=== PATIENT | female | born 1985 | race Two or more races ===

== ENCOUNTER 2020-09-08 22:34 | Outpatient (CLI) | payer BC ==
[~2020-09-08] VITALS: Ht 177.8 cm; Wt 109.3 kg
[2020-09-08 23:14] VITALS: BP 112/69
[2020-09-08 23:24] LABS: MICROSCOPIC INDICATED
== END 2020-09-09 | disposition home or self-care (01) ==
LOC: LDOP 22:34
PROVIDERS: ATTEND Obstetrics & Gynecology
DX: O09.93 Supervision of high risk pregnancy, unspecified, third trimester (principal); O26.893 Other specified pregnancy related conditions, third trimester; Z3A.38 38 weeks gestation of pregnancy
CPT/HCPCS: 59025; 81001; 87086

== ENCOUNTER 2020-09-16 14:17 | Inpatient (IN) | payer BC ==
[~2020-09-16] VITALS: Ht 170.2 cm; Wt 109.0 kg
[2020-09-16] MEDS ORDERED: NEWBORN KIT ONE (14:21)
[2020-09-16] MEDS ORDERED: SODIUM CITRATE/CITRIC ACID 15 ML UDC ONE (14:22)
[2020-09-16] MEDS ORDERED: OXYTOCIN 30U/ 0.9% NaCL 500ML 500 ML ONE (14:22)
[2020-09-16] MEDS ORDERED: METOCLOPRAMIDE 5 MG/ML, 2ML ONE (14:22)
[2020-09-16] MEDS ORDERED: SODIUM CITRATE/CITRIC ACID 30 ML UDC PO ONE (14:30)
[2020-09-16] MEDS ORDERED: METOCLOPRAMIDE 5 MG/ML, 2ML IV ONE (14:30)
[2020-09-16] MEDS ORDERED: LACTATED RINGERS 1,000 ML IVBOLUS ONE (14:30)
[2020-09-16 14:38] LABS: BASOPHILS % (AUTO) 1 % (0-1); EOSINOPHILS % (AUTO) 1 % (1-7); LYMPHOCYTES % (AUTO) 18 % (22-44); MEAN CORPUSCULAR HEMOGLOBIN 30.3 pg (27.0-34.8); MEAN CORPUSCULAR HGB CONC 33.9 g/dL (32.4-35.8); MEAN PLATELET VOLUME 8.5 fL (7.4-10.4); MONOCYTES % (AUTO) 7 % (2-9); NEUTROPHILS % (AUTO) 74 % (42-75); PLATELET COUNT 212 x10^3/uL (130-400); RED CELL DISTRIBUTION WIDTH 13.4 % (9.6-15.2)
[2020-09-16 14:40] LABS: MD NO
[2020-09-16 14:57] VITALS: BP 118/71
[2020-09-16] MEDS ORDERED: FLU VACC QS2020-21(6MOS UP)/PF 60MCG/0.5 ML SYR IM-VACC ONE (15:30)
[2020-09-16] MEDS ORDERED: OXYTOCIN 10 UNITS/ML, 1ML ONE (15:41)
[2020-09-16] MEDS ORDERED: morphine SULFATE/PF 1 MG/ML, 10ML ONE (15:41)
[2020-09-16] MEDS ORDERED: EPHEDRINE 50 MG/ML, 1ML ONE (15:41)
[2020-09-16] MEDS ORDERED: EPINEPHRINE 1 MG/ML, 1ML ONE ×2 (15:41)
[2020-09-16] MEDS ORDERED: CEFAZOLIN 1,000 MG ONE (15:41)
[2020-09-16] MEDS ORDERED: WATER-INJECTION,STERILE 10 ML IV ONE (15:41)
[2020-09-16] MEDS ORDERED: PHENYLEPHRINE 10 MG/ML ONE (15:41)
[2020-09-16] MEDS ORDERED: ONDANSETRON 2MG/ML, 2ML ONE (15:41)
[2020-09-16] MEDS: LACTATED RINGERS 1,000 ML IV SCH ×2 (16:16→18:25)
[2020-09-16] MEDS ORDERED: IBUPROFEN 200 MG TABLET PO PRN (17:00)
[2020-09-16] MEDS ORDERED: RHOGAM FROM BLOOD BANK 1 NOTE EA IM/IV ONE (17:00)
[2020-09-16] MEDS ORDERED: ONDANSETRON 2MG/ML, 2ML IV PRN (17:00)
[2020-09-16] MEDS ORDERED: HYDROcodone/APAP 5/325 TABLET PO PRN (17:00)
[2020-09-16] MEDS ORDERED: ACETAMINOPHEN 325 MG TABLET PO PRN (17:00)
[2020-09-16] MEDS ORDERED: IBUPROFEN 800 MG TABLET PO PRN (17:00)
[2020-09-16] MEDS ORDERED: MISOPROSTOL 200 MCG TABLET PR PRN (17:00)
[2020-09-16] MEDS ORDERED: BISACODYL 10 MG SUPP PR PRN (17:00)
[2020-09-16] MEDS ORDERED: GLYCOPYRROLATE 0.2MG/1ML, 5ML ONE (17:35)
[2020-09-16] MEDS: OXYTOCIN 30U/ 0.9% NaCL 500ML 500 ML IV SCH (18:25)
[2020-09-16] MEDS ORDERED: KETOROLAC 30 MG/1 ML ONE (19:09)
[2020-09-16] MEDS: KETOROLAC 30 MG/1 ML IVPush SCH (19:12)
[2020-09-16] MEDS ORDERED: OXYcodone/APAP 5/325MG TABLET ONE (19:41)
[2020-09-16] MEDS: OXYcodone/APAP 5/325MG TABLET PO PRN (19:44)
[2020-09-16 21:30] VITALS: BP 113/68
[2020-09-17] MEDS: KETOROLAC 30 MG/1 ML IVPush SCH ×4 (01:16→19:30)
[2020-09-17 01:29] VITALS: BP 106/66
[2020-09-17] MEDS: OXYTOCIN 30U/ 0.9% NaCL 500ML 500 ML IV SCH ×3 (03:00→23:00)
[2020-09-17 05:15] VITALS: BP 103/61
[2020-09-17 05:19] LABS: BASOPHILS % (AUTO) 0 % (0-1); EOSINOPHILS % (AUTO) 1 % (1-7); LYMPHOCYTES % (AUTO) 13 % (22-44); MEAN CORPUSCULAR HEMOGLOBIN 30.7 pg (27.0-34.8); MEAN CORPUSCULAR HGB CONC 34.7 g/dL (32.4-35.8); MEAN PLATELET VOLUME 8.1 fL (7.4-10.4); MONOCYTES % (AUTO) 7 % (2-9); NEUTROPHILS % (AUTO) 80 % (42-75); PLATELET COUNT 159 x10^3/uL (130-400); RED BLOOD COUNT 3.46 x10^6/uL (3.82-5.3); RED CELL DISTRIBUTION WIDTH 13.4 % (9.6-15.2)
[2020-09-17 05:30] LABS: MD NO
[2020-09-17] MEDS: OXYcodone/APAP 5/325MG TABLET PO PRN ×4 (05:45→20:23)
[2020-09-17 07:15] VITALS: BP 99/59
[2020-09-17] MEDS: PRENATAL VIT/IRON/FA 1 EACH TABLET PO SCH (07:20)
[2020-09-17] MEDS: FERROUS SULFATE 325 MG TABLET PO SCH ×2 (07:20→16:15)
[2020-09-17] MEDS: DOCUSATE 100 MG CAPSULE PO PRN ×2 (07:20→19:30)
[2020-09-17 13:00] VITALS: BP 99/63
[2020-09-17 20:00] VITALS: BP 106/64
[2020-09-18] MEDS: KETOROLAC 30 MG/1 ML IVPush SCH ×2 (01:31→07:00)
[2020-09-18 07:20] VITALS: BP 115/75
[2020-09-18] MEDS: PRENATAL VIT/IRON/FA 1 EACH TABLET PO SCH (07:45)
[2020-09-18] MEDS: DOCUSATE 100 MG CAPSULE PO PRN (07:45)
[2020-09-18] MEDS: FERROUS SULFATE 325 MG TABLET PO SCH (07:46)
[2020-09-18] MEDS: OXYcodone/APAP 5/325MG TABLET PO PRN (07:47)
[2020-09-18] MEDS ORDERED: DOCU-131 PO (09:29)
[2020-09-18] MEDS ORDERED: PREN1TAB60 PO (09:29)
[2020-09-18] MEDS ORDERED: OXYC1TAB14 PO (09:29)
[2020-09-18] MEDS ORDERED: FERR225T2 PO (09:30)
[2020-09-18] MEDS ORDERED: IBUP-1223 PO (09:30)
== END 2020-09-18 10:00 | disposition home or self-care (01) | DRG 788 ==
LOC: LDIP 14:17 → 2NW 21:35
PROVIDERS: ADMIT Obstetrics & Gynecology; ATTEND Obstetrics & Gynecology
PROC: 10D00Z1 Extraction of Products of Conception, Low, Open Approach (ICD-10-PCS; principal; 2020-09-16)
PROC: 3E0234Z Introduction of Serum, Toxoid and Vaccine into Muscle, Percutaneous Approach (ICD-10-PCS; 2020-09-16)
DX: O24.420 Gestational diabetes mellitus in childbirth, diet controlled (principal); D64.9 Anemia, unspecified; O99.02 Anemia complicating childbirth; O32.8XX0 Maternal care for other malpresentation of fetus, not applicable or unspecified; O99.824 Streptococcus B carrier state complicating childbirth; O69.81X0 Labor and delivery complicated by cord around neck, without compression, not applicable or unspecified; Z37.0 Single live birth; Z3A.39 39 weeks gestation of pregnancy; Z80.0 Family history of malignant neoplasm of digestive organs; Z80.3 Family history of malignant neoplasm of breast; Z80.41 Family history of malignant neoplasm of ovary; Z82.49 Family history of ischemic heart disease and other diseases of the circulatory system; Z83.3 Family history of diabetes mellitus; Z23 Encounter for immunization
CPT/HCPCS: 36415; 85025; 86592; 86850; 86900; 90686; G0378; J0171; J0690; J1885; J2274; J2405; J2370; J2590; J2765; J7120